=== PATIENT | male | born 1945 | race African-American/Black ===

== ENCOUNTER 2021-10-30 16:37 | Inpatient (IN) | payer OTHER ==
[2021-10-30 17:57] LABS: INR 1.27 (0.83-1.09); PROTHROMBIN TIME (PATIENT) 14.6 SEC (9.7-13.0)
[2021-10-30 17:58] LABS: HEMATOCRIT 10.9 % (35.4-49); MCHC 29.7 g/dl (32.0-35.9); MEAN CELL VOLUME 53.6 fl (80-96); MEAN PLT VOLUME 8.3 fl (7.5-11.1); PLATELET COUNT 293.7 10^3/uL (134-434); RBC 2.03 10^6/uL (4.00-5.60); RDW 26.4 % (11.9-15.9); WHITE BLOOD COUNT 4.5 10^3/uL (4.0-10.8)
[2021-10-30 18:04] LABS: ALBUMIN 3.6 g/dl (3.4-5.0); ALK PHOS 80 U/L (45-117); ANION GAP 18 MMOL/L (8-16); BILIRUBIN,TOTAL 1.1 mg/dl (0.2-1); CALCIUM 9.1 mg/dl (8.5-10); CHLORIDE 91 mmol/L (98-107); CO2 31 mmol/L (21-32); CREATININE 0.7 mg/dl (0.55-1.3); GLUCOSE,RANDOM 132 mg/dl (74-106); SGOT/AST 53 U/L (15-37); SGPT/ALT 21 U/L (13-61); SODIUM 140 mmol/L (136-145); TOT PROT 7.1 g/dl (6.4-8.2)
[2021-10-30 18:05] LABS: HEMOGLOBIN 3.2 G/dL (11.7-16.9)
[2021-10-30] MEDS ORDERED: POTASSIUM CHLORIDE TABS 20 MEQ TABLET.ER (FP) PO ONE ×2 (18:11→18:45)
[2021-10-30 20:34] LABS: PLATELET ESTIMATE ADEQUATE
[2021-10-30 22:47] LABS: IRON SERUM 10 ug/dL (50-175)
[2021-10-30 22:48] LABS: TOTAL IRON BINDING CAPACITY 483 ug/dL (250-450)
[2021-10-30 23:45] LABS: N-TERMINAL BNP 1845.2 pg/ml (5-125)
[2021-10-31] MEDS ORDERED: FUROSEMIDE 40 MG/4 ML INJECTABLE VIAL IVPUSH ONE ×2 (05:00)
[2021-10-31 09:09] LABS: HEMATOCRIT 18.5 % (35.4-49); MCHC 31.6 g/dl (32.0-35.9); MEAN CELL VOLUME 63.2 fl (80-96); MEAN PLT VOLUME 8.2 fl (7.5-11.1); PLATELET COUNT 244.3 10^3/uL (134-434); RBC 2.92 10^6/uL (4.00-5.60); WHITE BLOOD COUNT 5.9 10^3/uL (4.0-10.8)
[2021-10-31 09:15] LABS: HEMOGLOBIN 5.9 G/dL (11.7-16.9)
[2021-10-31 09:21] LABS: EPITHELIAL CELLS RARE /hpf
[2021-10-31 09:29] LABS: ALBUMIN 3.7 g/dl (3.4-5.0); BILIRUBIN,TOTAL 2.9 mg/dl (0.2-1); CALCIUM 8.9 mg/dl (8.5-10); CREATININE 0.6 mg/dl (0.55-1.3); TOT PROT 7.3 g/dl (6.4-8.2)
[2021-10-31] MEDS: MULTIVITAMINS (DAILY MVI) TABLET (FP) PO SCH (10:21)
[2021-10-31] MEDS: POTASSIUM CHLORIDE TABS 20 MEQ TABLET.ER (FP) PO SCH ×3 (10:21→21:10)
[2021-10-31] MEDS: FOLIC ACID 1 MG TABLET (FP) PO SCH (10:22)
[2021-10-31] MEDS: THIAMINE HCL 100 MG TABLET (FP) PO SCH (10:22)
[2021-10-31] MEDS: NICOTINE 21 MG/24 HOURS TOPICAL PATCH TD SCH (12:12)
[2021-10-31 13:04] LABS: ANISOCYTOSIS 3+; PLATELET ESTIMATE ADEQUATE
[2021-10-31] MEDS ORDERED: LISINOPRIL 5 MG TABLET PO ONE (13:30)
[2021-10-31] MEDS: metoPROLOL SUCCINATE 25 MG TAB.SR.24H (FP) PO SCH (13:37)
[2021-10-31] MEDS: FUROSEMIDE 40 MG/4 ML INJECTABLE VIAL IVPUSH SCH (13:47)
[2021-11-01] MEDS: FUROSEMIDE 40 MG/4 ML INJECTABLE VIAL IVPUSH SCH ×2 (06:47→15:14)
[2021-11-01 08:22] LABS: ALBUMIN 3.4 g/dl (3.4-5.0); BILIRUBIN,TOTAL 2.2 mg/dl (0.2-1); CALCIUM 8.8 mg/dl (8.5-10); CREATININE 0.6 mg/dl (0.55-1.3); MAGNESIUM 1.8 mg/dL (1.8-2.4); TOT PROT 6.7 g/dl (6.4-8.2)
[2021-11-01 08:32] LABS: HEMATOCRIT 20.9 % (35.4-49); HEMOGLOBIN 6.9 G/dL (11.7-16.9); MCH 21.4 pg (25.7-33.7); MCHC 32.8 g/dl (32.0-35.9); MEAN CELL VOLUME 65.3 fl (80-96); MEAN PLT VOLUME 8.5 fl (7.5-11.1); PLATELET COUNT 206.3 10^3/uL (134-434); RDW 34.8 % (11.9-15.9); WHITE BLOOD COUNT 6.1 10^3/uL (4.0-10.8)
[2021-11-01] MEDS: THIAMINE HCL 100 MG TABLET (FP) PO SCH (09:36)
[2021-11-01] MEDS: FOLIC ACID 1 MG TABLET (FP) PO SCH (09:36)
[2021-11-01] MEDS: NICOTINE 21 MG/24 HOURS TOPICAL PATCH TD SCH (09:36)
[2021-11-01] MEDS: metoPROLOL SUCCINATE 25 MG TAB.SR.24H (FP) PO SCH (09:36)
[2021-11-01] MEDS: MULTIVITAMINS (DAILY MVI) TABLET (FP) PO SCH (09:36)
[2021-11-01 17:37] VITALS: BMI 21.0
[2021-11-01] MEDS: LOSARTAN POTASSIUM 25 MG TABLET PO SCH (18:53)
[2021-11-02] MEDS: FUROSEMIDE 40 MG/4 ML INJECTABLE VIAL IVPUSH SCH ×2 (06:06→13:54)
[2021-11-02] MEDS: FOLIC ACID 1 MG TABLET (FP) PO SCH (09:48)
[2021-11-02] MEDS: metoPROLOL SUCCINATE 25 MG TAB.SR.24H (FP) PO SCH (09:48)
[2021-11-02] MEDS: LOSARTAN POTASSIUM 25 MG TABLET PO SCH (09:48)
[2021-11-02] MEDS: MULTIVITAMINS (DAILY MVI) TABLET (FP) PO SCH (09:48)
[2021-11-02] MEDS: THIAMINE HCL 100 MG TABLET (FP) PO SCH (09:48)
[2021-11-02] MEDS: NICOTINE 21 MG/24 HOURS TOPICAL PATCH TD SCH (09:52)
[2021-11-02 09:58] LABS: ALBUMIN 3.6 g/dl (3.4-5.0); BILIRUBIN,TOTAL 1.6 mg/dl (0.2-1); CALCIUM 9.4 mg/dl (8.5-10); CREATININE 0.8 mg/dl (0.55-1.3); MAGNESIUM 1.6 mg/dL (1.8-2.4); TOT PROT 7.1 g/dl (6.4-8.2)
[2021-11-02 10:01] LABS: HEMATOCRIT 27.2 % (35.4-49); HEMOGLOBIN 9.2 G/dL (11.7-16.9); MCH 23.2 pg (25.7-33.7); MCHC 33.7 g/dl (32.0-35.9); MEAN CELL VOLUME 68.8 fl (80-96); MEAN PLT VOLUME 8.6 fl (7.5-11.1); PLATELET COUNT 226.1 10^3/uL (134-434); RBC 3.96 10^6/uL (4.00-5.60); RDW 36.3 % (11.9-15.9); WHITE BLOOD COUNT 7.2 10^3/uL (4.0-10.8)
[2021-11-02 10:16] LABS: ALBUMIN 3.6 g/dl (3.4-5.0); BILIRUBIN,DIRECT 0.5 mg/dL (0.0-0.2); BILIRUBIN,TOTAL 1.7 mg/dl (0.2-1); TOT PROT 7.1 g/dl (6.4-8.2)
[2021-11-02] MEDS ORDERED: IRON SUCROSE INJECTION 200 MG in SODIUM CHLORIDE 100 ML IVPB ONE (10:30)
[2021-11-02 10:37] LABS: ADD RBC MORPHOLOGY YES; PLATELET ESTIMATE ADEQUATE
[2021-11-02 10:40] LABS: ANISOCYTOSIS 2+; MACROCYTOSIS 1+
[2021-11-02] MEDS: POTASSIUM CHLORIDE TABS 20 MEQ TABLET.ER (FP) PO SCH ×2 (12:14→17:59)
[2021-11-03] MEDS: FUROSEMIDE 40 MG/4 ML INJECTABLE VIAL IVPUSH SCH ×2 (06:29→13:55)
[2021-11-03 08:53] LABS: ALBUMIN 3.6 g/dl (3.4-5.0); BILIRUBIN,TOTAL 1.5 mg/dl (0.2-1); CALCIUM 9.4 mg/dl (8.5-10); CREATININE 0.6 mg/dl (0.55-1.3); MAGNESIUM 1.5 mg/dL (1.8-2.4)
[2021-11-03 08:56] LABS: HEMATOCRIT 28.2 % (35.4-49); HEMOGLOBIN 9.3 G/dL (11.7-16.9); MCH 23.2 pg (25.7-33.7); MCHC 32.8 g/dl (32.0-35.9); MEAN CELL VOLUME 70.6 fl (80-96); MEAN PLT VOLUME 8.8 fl (7.5-11.1); PLATELET COUNT 209.5 10^3/uL (134-434); RBC 3.99 10^6/uL (4.00-5.60); RDW 38.9 % (11.9-15.9); WHITE BLOOD COUNT 6.6 10^3/uL (4.0-10.8)
[2021-11-03] MEDS ORDERED: MAGNESIUM SULF 50% (8.12 MEQ/2 ML-1 GM VIAL) IVPB ONE (09:45)
[2021-11-03] MEDS: FOLIC ACID 1 MG TABLET (FP) PO SCH (10:08)
[2021-11-03] MEDS: metoPROLOL SUCCINATE 25 MG TAB.SR.24H (FP) PO SCH (10:08)
[2021-11-03] MEDS: POTASSIUM CHLORIDE TABS 20 MEQ TABLET.ER (FP) PO SCH ×2 (10:09→15:23)
[2021-11-03] MEDS: MULTIVITAMINS (DAILY MVI) TABLET (FP) PO SCH (10:09)
[2021-11-03] MEDS: LOSARTAN POTASSIUM 25 MG TABLET PO SCH (10:09)
[2021-11-03] MEDS: THIAMINE HCL 100 MG TABLET (FP) PO SCH (10:09)
[2021-11-03 10:13] LABS: ANISOCYTOSIS 2+; MACROCYTOSIS 1+
[2021-11-03] MEDS: NICOTINE 21 MG/24 HOURS TOPICAL PATCH TD SCH (10:13)
[2021-11-03 10:14] LABS: OVALOCYTE 1+
[2021-11-03] MEDS ORDERED: IRON SUCROSE INJECTION 200 MG in SODIUM CHLORIDE 90 ML IVPB ONE (10:15)
[2021-11-04] MEDS: FUROSEMIDE 40 MG/4 ML INJECTABLE VIAL IVPUSH SCH (06:53)
[2021-11-04 09:09] LABS: CREATININE 0.7 mg/dl (0.55-1.3)
[2021-11-04 09:10] LABS: ALBUMIN 3.4 g/dl (3.4-5.0); BILIRUBIN,TOTAL 0.9 mg/dl (0.2-1); CALCIUM 9.3 mg/dl (8.5-10); MAGNESIUM 1.9 mg/dL (1.8-2.4); TOT PROT 6.6 g/dl (6.4-8.2)
[2021-11-04 09:17] LABS: HEMATOCRIT 29.3 % (35.4-49); HEMOGLOBIN 9.2 G/dL (11.7-16.9); MCHC 31.4 g/dl (32.0-35.9); MEAN PLT VOLUME 8.9 fl (7.5-11.1); PLATELET COUNT 197.8 10^3/uL (134-434); RBC 4.01 10^6/uL (4.00-5.60); RDW 41.5 % (11.9-15.9); WHITE BLOOD COUNT 8.5 10^3/uL (4.0-10.8)
[2021-11-04] MEDS: LOSARTAN POTASSIUM 25 MG TABLET PO SCH (09:34)
[2021-11-04] MEDS: NICOTINE 21 MG/24 HOURS TOPICAL PATCH TD SCH (09:34)
[2021-11-04] MEDS: THIAMINE HCL 100 MG TABLET (FP) PO SCH (09:34)
[2021-11-04] MEDS: MULTIVITAMINS (DAILY MVI) TABLET (FP) PO SCH (09:34)
[2021-11-04] MEDS: FOLIC ACID 1 MG TABLET (FP) PO SCH (09:34)
[2021-11-04] MEDS: metoPROLOL SUCCINATE 25 MG TAB.SR.24H (FP) PO SCH (09:35)
[2021-11-04 10:55] VITALS: BP 98/49; TEMP 97.5
[2021-11-04 12:18] VITALS: PULSE 75
[2021-11-05] MEDS ORDERED: FUROSEMIDE 40 MG/4 ML INJECTABLE VIAL IVPUSH SCH (10:00)
== END 2021-11-04 14:04 | disposition home or self-care (01) | DRG 811 ==
LOC: FER 16:37 → FM/S 20:03
PROVIDERS: ADMIT Internal Medicine; ATTEND Nurse Practitioner Acute Care
PROC: 30233N1 Transfusion of Nonautologous Red Blood Cells into Peripheral Vein, Percutaneous Approach (ICD-10-PCS; principal; 2021-10-30)
DX: D50.8 Other iron deficiency anemias (principal); I50.41 Acute combined systolic (congestive) and diastolic (congestive) heart failure; I27.0 Primary pulmonary hypertension; E87.6 Hypokalemia; F10.20 Alcohol dependence, uncomplicated; R07.89 Other chest pain; F17.200 Nicotine dependence, unspecified, uncomplicated; I08.1 Rheumatic disorders of both mitral and tricuspid valves; E86.0 Dehydration
CPT/HCPCS: 0241U-QW; 36415; 36430; 71045-TC-FY; 80053; 80076; 80307; 81003; 81015; 82272; 82607; 82728; 82746; 83021; 83540; 83550; 83615; 83735; 83880; 84155; 84165; 84484; 85025; 85027; 85045; 85610; 86038; 86850; 86880; 86900; 86901; 86922; 93005; 93306-TC; 94761; 97116-GP; 97162-GP; 99285-25; J1756; P9058